=== PATIENT | male | born 1980 | race African-American/Black ===

== ENCOUNTER 2017-04-19 18:29 | Emergency (ER) | payer OTHER ==
[~2017-04-19] VITALS: Ht 167.6 cm; Wt 61.2 kg
[2017-10-22] MEDS ORDERED: BACTRIM DS TAB1 EACH PO (20:08)
== END 2017-04-19 19:30 | disposition home or self-care (01) ==
LOC: ER 18:29
DX: S63.501A Unspecified sprain of right wrist, initial encounter (principal); F17.210 Nicotine dependence, cigarettes, uncomplicated; X58.XXXA Exposure to other specified factors, initial encounter; Y93.89 Activity, other specified; Y92.89 Other specified places as the place of occurrence of the external cause; Y99.8 Other external cause status